=== PATIENT | male | born 1960 | race Caucasian/White ===

== ENCOUNTER 2017-10-28 10:55 | Outpatient (CLI) | payer MEDICAID, SELFPAY ==
--- NOTE | 2017-10-28 10:49 | DI.REPORT_ITS ---
SYMPTOM/DIAGNOSIS: F/UI LT MAGGIE LEFT HIP AND PELVIS: Comparison 11/12/16. There are again seen post surgical changes of bilateral total hip replacements. There are no suspicious lucencies in or about the orthopaedic hardware to suggest loosening or infection. The bones are intact. Clips are seen in the region to suggest a vasectomy. IMPRESSION: Stable left THR
== END 2017-10-28 10:56 ==
PROVIDERS: PCP Internal Medicine; Visit Provider Student in an Organized Health Care Education/Training Program
DX: M16.0 Bilateral primary osteoarthritis of hip (principal); Z96.642 Presence of left artificial hip joint; Z47.1 Aftercare following joint replacement surgery
CPT/HCPCS: 73502